=== PATIENT | female | born 1970 | race African-American/Black ===

== ENCOUNTER 2025-01-02 15:57 | Emergency (ER) | payer MEDICARE, OTHER ==
[~2025-01-02 15:57] MED LIST: Iopamidol 370 76% 100 ML VIAL ONE
[2025-01-02 16:35] LABS: #Basophils 0.03 10x3/uL (0.0-0.2); #Eosinophils 0.16 10x3/uL (0.0-0.5); #Monocytes 0.88 10x3/uL (0.0-1.1); #Neutrophils 8.69 10x3/uL (1.5-8.4); %Basophils 0.3 % (0.0-2.0); %Eosinophils 1.6 % (0.0-6.0); %Lymphocytes 3.2 % (18.0-47.0); %Monocytes 8.7 % (0.0-10.0); %Neutrophils 85.5 % (40.0-75.0); Hematocrit 23.4 % (34.9-44.5); Hemoglobin 7.6 g/dL (12.0-15.5); Mean Corpuscular Hemoglobin 30.3 pg (27.0-33.0); Mean Corpuscular Volume 93.2 fL (81.6-98.3); Platelet Count 242 10x3/uL (150-450); Red Blood Cell (RBC) Count 2.51 10x6/uL (3.90-5.03); White Blood Cell (WBC) Count 10.15 10x3/uL (3.5-10.5)
[2025-01-02] MEDS ORDERED: Ondansetron PF 4 MG/2 ML Vial ONE ×2 (16:35→16:47)
[2025-01-02 16:51] LABS: ALT (SGPT) 12 U/L (Less than 34); AST (SGOT) 22 U/L (11-34); Albumin 2.2 g/dL (3.1-4.5); Alkaline Phosphatase 62 U/L (40-110); Anion Gap 27 mmol/L (10-20); BUN (Urea Nitrogen) 120 mg/dL (9.8-20.1); Bilirubin, Total 0.3 mg/dL (0.3-1.2); Calc. Creatinine Clearance 0 mL/min (70-130); Calcium 7.7 mg/dL (7.8-10.44); Carbon Dioxide 16 mmol/L (22-29); Chloride 97 mmol/L (98-107); Globulin 4.5 g/dL (2.4-3.5); Glucose 90 mg/dL (70-105); Potassium 4.6 mmol/L (3.5-5.1); Sodium 135 mmol/L (136-145)
[2025-01-02 18:46] LABS: Actual Bicarbonate (HCO3v) 15.1 mEq/L (22-28); Analyzer IN Cardio CS ER; Base Excess -11.3 mEq/L (-2 - +2); Calcium, Ionized (venous) 0.93 mmol/L (1.16-1.32); Chloride (VBG) 96 mmol/L (98-106); Critical Notified By: CP.PH; Hematocrit-VBG 29 % (36.0-47.0); Hemoglobin (Hb) 9.8 g/dL (11.7-16.0); Potassium (VBG) 3.86 mmol/L (3.70-5.30); Puncture Site Other Site; RapidComm Collect By LAB.RB3; Sodium 130 mmol/L (133-146)
[2025-01-02] MEDS ORDERED: Acetaminophen 500 MG TAB ONE (20:37)
[2025-01-02] MEDS ORDERED: Famotidine/PF 20 mg/2ml Vial ONE (21:12)
[2025-01-02] MEDS ORDERED: diphenhydrAMINE 50 MG/ML VIAL ONE (21:12)
== END 2025-01-02 22:41 | disposition short-term general hospital (02) ==
LOC: CSHERS 15:57
DX: L03.311 Cellulitis of abdominal wall (principal); M25.552 Pain in left hip; E87.20 Acidosis, unspecified; I12.0 Hypertensive chronic kidney disease with stage 5 chronic kidney disease or end stage renal disease; N18.6 End stage renal disease; K21.9 Gastro-esophageal reflux disease without esophagitis; Z99.2 Dependence on renal dialysis; Z79.899 Other long term (current) drug therapy
CPT/HCPCS: 72192; 73502; 74177; 80053; 82805; 83605; 83690; 85025; 87040; 94760; J1200; J2270; J2543; J2919; J3010; 36415; 96365; 96375; Q9967